=== PATIENT | female | born 1935 | race Caucasian/White ===

== ENCOUNTER 2016-12-31 07:14 | Emergency (ER) | payer MEDICARE, BC ==
[~2016-12-31 07:14] MED LIST: ATROPINE SULFAT15 M1 RIGHT EYE; BRIMONIDINE TAR; BUSPIRONE HCL5 M1 PO; DORZOLAMIDE-TIM10 M1; EYE DROPS15 M3 OP; ISOPTO TEARS15 M1 OP; LEVAQUIN750 M1 PO; LORAZEPAM0.5 M1 PO; LUMIGAN2.5 M2 EACH EYE; NEURONTIN100 M1 PO; OMEPRAZOLE20 M3 PO
== END 2016-12-31 08:50 ==
LOC: EDMED 07:14
PROC: 2W3DX1Z Immobilization of Left Lower Arm using Splint (ICD-10-PCS; principal; 2016-12-31)
DX: S52.502A Unspecified fracture of the lower end of left radius, initial encounter for closed fracture (principal); S52.612A Displaced fracture of left ulna styloid process, initial encounter for closed fracture; W01.0XXA Fall on same level from slipping, tripping and stumbling without subsequent striking against object, initial encounter; Y92.019 Unspecified place in single-family (private) house as the place of occurrence of the external cause